=== PATIENT | female | born 1965 | race Caucasian/White ===

== ENCOUNTER 2023-10-22 05:33 | Day surgery (SDC) | payer OTHER, MEDICAID ==
[2023-10-20 10:42] VITALS: BMI 37.5
[2023-10-22] MEDS ORDERED: EPINEPHrine 1 MG/ML VIAL ONE (06:25)
[2023-10-22] MEDS ORDERED: Bupivacaine PF 0.5% 30 ML VIAL ONE (06:25)
[2023-10-22] MEDS ORDERED: CEFAZOLIN 2 GM VIAL ONE (06:34)
[2023-10-22] MEDS ORDERED: Dexamethasone 4 mg/ml Vial ONE (06:40)
[2023-10-22] MEDS ORDERED: Midazolam HCl 2 mg/2 ml Vial ONE (06:40)
[2023-10-22] MEDS ORDERED: Ondansetron PF 4 MG/2 ML Vial ONE (06:40)
[2023-10-22] MEDS ORDERED: Lidocaine 2% PF 5 ML VIAL ONE (06:40)
[2023-10-22] MEDS ORDERED: fentaNYL 50 mcg/mL 1 mL Vial ONE (06:40)
[2023-10-22] MEDS ORDERED: PROPOFOL 20 ML ONE (06:40)
[2023-10-22] MEDS ORDERED: HYDROcodone/Acetaminophen 5/325 mg Tablet PO PRN (07:45)
[2023-10-22] MEDS ORDERED: Acetaminophen 325 MG TAB PO PRN (07:45)
== END 2023-10-22 08:20 | disposition home or self-care (01) ==
LOC: CSHSDC 05:33
PROVIDERS: ATTEND Surgery
PROC: 0JH63WZ Insertion of Totally Implantable Vascular Access Device into Chest Subcutaneous Tissue and Fascia, Percutaneous Approach (ICD-10-PCS; principal; 2023-10-22)
DX: C53.9 Malignant neoplasm of cervix uteri, unspecified (principal); B18.2 Chronic viral hepatitis C; I10 Essential (primary) hypertension; Z87.891 Personal history of nicotine dependence; Z88.5 Allergy status to narcotic agent; Z94.4 Liver transplant status; Z79.899 Other long term (current) drug therapy
CPT/HCPCS: 36561; 71045; 82962; C1788; J0171; J3010; 36416; J1100; J1642; J2001; J2250; J2405; J2704; S0020